=== PATIENT | male | born 1995 | race African-American/Black ===

== ENCOUNTER 2020-04-18 15:30 | Emergency (ER) | payer OTHER ==
[~2020-04-18] VITALS: Ht 182.9 cm; Wt 83.9 kg
[~2020-04-18 15:30] MED LIST: BUTALB-ACETAMI1 EAC1 PO; TRAMADOL HCL50 MG ORAL; VALIUM2 MG ORAL
[2020-04-18 15:42] VITALS: BP 128/64
--- NOTE | 2020-04-18 15:45 | NUR ---
ED Nurse Note: Pt. aaox4. ambulatory. walked in to er from home. per pt. he has been having cp x 1 week but denies n/v/d. pain is non-radiating.
[2020-04-18] MEDS ORDERED: Ketorolac 30mg Inj IV ONE (16:15)
[2020-04-18] MEDS ORDERED: DiphenhydrAMINE 50mg/ml Inj IVP ONE (16:15)
[2020-04-18 17:08] LABS: BASOPHILS % (AUTO) 1.3 % (0.0-2.0); EOSINOPHILS % (AUTO) 2.9 % (0.0-3.0); HEMATOCRIT 39.2 % (42.0-52.0); HEMOGLOBIN 12.8 G/DL (14.2-18.0); LYMPHOCYTES % (AUTO) 28.3 % (20.0-45.0); MEAN CORPUSCULAR VOLUME 89 FL (80-99); MONOCYTES % (AUTO) 5.3 % (1.0-10.0); NEUTROPHILS % (AUTO) 62.2 % (45.0-75.0); PLATELET COUNT 122 K/UL (150-450); RED BLOOD COUNT 4.42 M/UL (4.70-6.10); RED CELL DISTRIBUTION WIDTH 11.9 % (11.6-14.8); WHITE BLOOD COUNT 6.6 K/UL (4.8-10.8)
--- NOTE | 2020-04-18 17:10 | Emergency Room Report ---
History of Present Illness General Chief Complaint: Chest Pain Source: Patient Present Illness HPI 24-year-old male presents to the emergency department complaining of 7 out of 10 severity diffuse chest pain in addition to throbbing frontal headache with feeling lightheaded x1 week. Patient with history of migraines and sickle cell trait. Patient reports he has had no relief with taking ypja-axp-soaonvs Aleve. Patient reports some nausea but denies vomiting. He denies vertigo. He denies recent head injury. He denies loss of consciousness. Patient denies palpitation he denies cardiac history. No familial cardiac history. He denies cough or shortness of breath. Patient reports chest pain is exacerbated upon palpation. Denies numbness tingling or loss of sensation or gross motor movements of the extremities, incontinence of bowel or bladder. Denies changes in vision, weakness or a sudden onset of a severe headache. He denies fevers or chills. He denies drug and ETOH use. Denies hx of asthma, COPD or smoking. Allergies: Coded Allergies: PEANUT (Verified Allergy, Unknown, 12/04/15) COVID-19 Screening Contact w/high risk pt: No Recent Travel to affected area: No Experienced COVID-19 symptoms?: No COVID-19 Testing performed BRIM SHAPER: No Patient History Past Medical History: see triage record Past Surgical History: none Pertinent Family History: none Reviewed Nursing Documentation: PMH: Agreed; PSxH: Agreed Nursing Documentation-PMH Past Medical History: No History, Except For Hx Cardiac Problems: No - sickle cell anemia trait Review of Systems All Other Systems: negative except mentioned in HPI Physical Exam Vital Signs Date Time Temp Pulse Resp B/P (MAP) Pulse Ox O2 Delivery O2 Flow Rate FiO2 04/18/20 15:42 98.2 95 18 128/64 (85) 98 Room Air Sp02 EP Interpretation: reviewed, normal General Appearance: no apparent distress, alert, GCS 15, non-toxic Head: normocephalic, atraumatic Eyes: bilateral eye normal inspection, bilateral eye PERRL, bilateral eye other - no photophobia ENT: hearing grossly normal, normal voice Neck: full range of motion Respiratory: lungs clear, normal breath sounds, speaking full sentences, other - tenderness to palpation to the anterior chest bilaterally. no flail chest. no erythema, no bruising, no rashes Cardiovascular #1: regular rate, rhythm Gastrointestinal: non tender, soft Genitourinary: normal inspection, no CVA tenderness Musculoskeletal: back normal, normal range of motion, gait/station normal, non- tender Neurologic: alert, motor strength/tone normal, oriented x3, sensory intact, responsive, speech normal, grossly normal, no focal defects Psychiatric: judgement/insight normal, memory normal Skin: no rash, normal color Medical Decision Making PA Attestation Dr. Lopez Is my supervising Physician whom patient management has been discussed with. Diagnostic Impression: Primary Impression: Acute nonspecific chest pain with low risk of coronary artery disease Additional Impressions: Headache Qualified Codes: R51 - Headache Dehydration, mild ER Course 24-year-old male presents to the emergency department complaining of 7 out of 10 severity diffuse chest pain in addition to throbbing frontal headache with feeling lightheaded x1 week. Patient with history of migraines and sickle cell trait. Patient reports he has had no relief with taking [id number]-lyo-yhubgwi Aleve. Patient reports some nausea but denies vomiting. He denies vertigo. He denies recent head injury. He denies loss of consciousness. Patient denies palpitation he denies cardiac history. No familial cardiac history. He denies cough or shortness of breath. Patient reports chest pain is exacerbated upon palpation. Denies numbness tingling or loss of sensation or gross motor movements of the extremities, incontinence of bowel or bladder. Denies changes in vision, weakness or a sudden onset of a severe headache. He denies fevers or chills. He denies drug and ETOH use. Denies hx of asthma, COPD or smoking. Ddx considered but are not limited to OK, pneumonia, contusion, costochondritis , PE, ACS, Shoulder strain, Chest wall contusion. aortic dissection, Migraine, SAH, cancer, URI, ACS, sickle cell crisis, just to name a few. Vital signs: are WNL, pt. is afebrile H&PE are most consistent with possible migraine. new onset chest pain with lightheadedness prompting need for cardiac work up. Pt. does not exhibit any focal neurological deficit. Pt. is PERC negative. ORDERS: - EKBPM NSR -CBC: WNL -CMP: WNL -Troponin: 0.00 -Retic Count: WNL CXR: WNL --Orthostatic VS: negative ED INTERVENTIONS: - PT. placed on cardiac monitoring. -Toradol IV -Benadryl 25mg IV -Reglan PO -2 Liters NS Upon reevaluation patient reports that his symptoms have fully resolved and he feels much better. -I do not identify an emergent condition at this time. With current presentation , pt. is stable for close outpatient follow up and conservative treatment. D/ w pt. to return promptly to ED with worsening or new symptoms.- Pt. verbalizes' understanding and agreement with proposed treatment plan.proposed treatment plan. DISCHARGE: At this time pt. is stable for d/c to home. Will provide printed patient care instructions, and any necessary prescriptions. Care plan and follow up instructions have been discussed with the patient prior to discharge. Labs Test 04/18/20 16:46 White Blood Count 6.6 K/UL (4.8-10.8) Red Blood Count 4.42 M/UL (4.70-6.10) Hemoglobin 12.8 G/DL (14.2-18.0) Hematocrit 39.2 % (42.0-52.0) Mean Corpuscular Volume 89 FL (80-99) Mean Corpuscular Hemoglobin 28.9 PG (27.0-31.0) Mean Corpuscular Hemoglobin Concent 32.6 G/DL (32.0-36.0) Red Cell Distribution Width 11.9 % (11.6-14.8) Platelet Count 122 K/UL (150-450) Mean Platelet Volume 11.5 FL (6.5-10.1) Neutrophils (%) (Auto) 62.2 % (45.0-75.0) Lymphocytes (%) (Auto) 28.3 % (20.0-45.0) Monocytes (%) (Auto) 5.3 % (1.0-10.0) Eosinophils (%) (Auto) 2.9 % (0.0-3.0) Basophils (%) (Auto) 1.3 % (0.0-2.0) Reticulocyte Count 0.3 % (0.5-2.0) Sodium Level 142 MMOL/L (136-145) Potassium Level 3.7 MMOL/L (3.5-5.1) Chloride Level 107 MMOL/L (98-107) Carbon Dioxide Level 27 MMOL/L (21-32) Anion Gap 8 mmol/L (5-15) Blood Urea Nitrogen 11 mg/dL (7-18) Creatinine 1.2 MG/DL (0.55-1.30) Estimat Glomerular Filtration Rate > 60 mL/min (>60) Glucose Level 106 MG/DL (74-106) Calcium Level 8.4 MG/DL (8.5-10.1) Troponin I 0.000 ng/mL (0.000-0.056) EKG Diagnostic Results EP Interpretation: Dr. Lopez Rate: normal - 97 BMP Rhythm: NSR ST Segments: no acute changes ASA given to the pt in ED: No PA Scribe Text This Interpretation was scribed by SHAHNAZ Nicolas. Chest X-Ray Diagnostic Results Chest X-Ray Diagnostic Results : Chest X-Ray Ordered: Yes # of Views/Limited/Complete: 1 View Indication: Chest Pain EP Interpretation: Yes PA Xray: Interpretation reviewed, by supervising MD, and agrees with findings. Interpretation: no consolidation, no effusion, no pneumothorax, no acute cardiopulmonary disease Impression: No acute disease Electronically Signed by: Celeste Nicolas PA-C Last Vital Signs Date Time Temp Pulse Resp B/P (MAP) Pulse Ox O2 Delivery O2 Flow Rate FiO2 04/18/20 15:42 98.2 95 18 128/64 (85) 98 Room Air Disposition: HOME, SELF-CARE Condition: Stable Scripts Aspirin/Acetaminophen/Caffeine (EXCEDRIN MIGRAINE GELTAB) 1 Each Tablet 1 EACH PO Q6HR, #20 TAB Prov: Celeste Nicolas 04/18/20 Referrals: DIRK MIN,REFERRING (PCP) Patient Instructions: Dehydration, Adult, Kmkf-go-Pbsp, Migraine Headache, Easy -to-Read, Nonspecific Chest Pain Additional Instructions: Take medications as directed. Follow up with a Primary Care Provider in 3-5 days, even if your symptoms have resolved. --Please review list of primary care clinics, if you do not already have a primary care provider Return sooner to ED if new symptoms occur, or current symptoms become worse. - Please note that this Emergency Department Report was dictated using [employer] gatherer technology software, occasionally this can lead to erroneous entry secondary to interpretation by the dictation equipment. Celeste Nicolas April 18, 2020 17:10
[2020-04-18 17:18] LABS: ANION GAP 8 mmol/L (5-15); BLOOD UREA NITROGEN 11 mg/dL (7-18); CALCIUM 8.4 MG/DL (8.5-10.1); CARBON DIOXIDE 27 MMOL/L (21-32); CHLORIDE 107 MMOL/L (98-107); CREATININE 1.2 MG/DL (0.55-1.30); POTASSIUM 3.7 MMOL/L (3.5-5.1); SODIUM 142 MMOL/L (136-145)
--- NOTE | 2020-04-18 18:33 | Diagnostic Imaging Report ---
Indication: Chest pain Technique: One view of the chest Comparison: none Findings: Lungs and pleural spaces are clear. Heart size is normal. Impression: No acute process
[2020-04-18] MEDS ORDERED: EXCEDRIN MIGRA1 EACH PO (18:58)
[2020-04-18 19:00] VITALS: BP 105/63
--- NOTE | 2020-04-18 19:03 | NUR ---
HAND-OFF: Report given to Teri STANLEY.
[2020-04-18 19:30] VITALS: BP 117/58
--- NOTE | 2020-04-18 19:30 | NUR ---
ER DISCHARGE NOTE: Patient is cleared to be discharged per ERMD, pt is aox4, on room air, with stable vital signs. pt was given dc and prescription instructions, pt was able to verbalize understanding, pt id band and iv site removed without complications. pt is able to ambulate with steady gait. pt took all belongings.
[2020-04-18 19:40] VITALS: BP 117/58
== END 2020-04-18 19:40 | disposition home or self-care (01) ==
LOC: EMR 16:06
DX: R07.9 Chest pain, unspecified (principal); R51 Headache; E86.0 Dehydration; D57.3 Sickle-cell trait
CPT/HCPCS: 36415; 71045; 80048; 84484; 85025; 85044; 93005; 96361; 96374; 96375; J1200; J1885; J7030; Z7502; 99284